=== PATIENT | female | born 1980 | race African-American/Black ===

== ENCOUNTER 2020-09-01 02:22 | Emergency (ER) | payer MEDICAID, OTHER ==
[~2020-09-01] VITALS: Ht 154.9 cm; Wt 74.8 kg
[2020-09-01 02:23] VITALS: BP 126/98
[2020-09-01] MEDS ORDERED: KETOROLAC TROMETH 60MG/2ML VIAL IM ONE (03:30)
== END 2020-09-01 03:38 | disposition left against medical advice (07) ==
LOC: ER 02:22
DX: S93.491A Sprain of other ligament of right ankle, initial encounter (principal); S09.8XXA Other specified injuries of head, initial encounter; E66.9 Obesity, unspecified; F17.210 Nicotine dependence, cigarettes, uncomplicated; Z68.31 Body mass index [BMI] 31.0-31.9, adult; Z88.6 Allergy status to analgesic agent; W01.0XXA Fall on same level from slipping, tripping and stumbling without subsequent striking against object, initial encounter; Y93.89 Activity, other specified; Y92.89 Other specified places as the place of occurrence of the external cause; Y99.8 Other external cause status
CPT/HCPCS: 73610